=== PATIENT | male | born 1955 | race American Indian/Alaskan Native ===

== ENCOUNTER 2017-03-05 00:52 | Emergency (ER) | payer MEDICARE, OTHER ==
[2017-03-05] MEDS ORDERED: TYLENOL ONE (01:04)
[2017-03-05] MEDS ORDERED: TYLENOL PO ONE (01:05)
[2017-03-05] MEDS ORDERED: ZOFRAN ODT ONE ×2 (01:10→01:14)
[2017-03-05] MEDS ORDERED: PEPCID ONE (01:10)
[2017-03-05 01:29] VITALS: BP 145/91
[2017-03-05] MEDS ORDERED: PEPCID PO ONE (01:29)
[2017-03-05] MEDS ORDERED: ZOFRAN ODT PO ONE ×2 (01:30→01:31)
[2017-03-05] MEDS ORDERED: KEFLEX PO ONE (05:45)
[2017-03-05] MEDS ORDERED: MOTRIN PO ONE (05:45)
[2017-03-05] MEDS ORDERED: TRIPLE ANTIBIOTIC TP ONE (05:45)
--- NOTE | 2017-03-05 06:03 | Emergency Department Report ---
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 PT states he has been on the road for two days. PT states on Thursday morning, he woke up at 0300 and felt something sting/ bite him. PT states during the day the bite site started to throb and itch. 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 PT states he did not take anything for his symptoms. PT states that the bite site , R elbow had a blister and now it has an open area. PT states he is UTD on his TD vaccine. MD Complaint: extremity pain (due to bug bite) -: Gradual, days(s) Location: right, upper extremity History of Same: No Severity scale (0 -10): 3 Quality: dull, constant Consistency: constant Improves with: medication (given in triage ) Worsens with: nothing Associated Symptoms: rash (redness ). denies: chest pain, shortness of breath, fever - Related Data Previous Rx's Medication Instructions Recorded Last Taken Type Cephalexin [Keflex] 500 mg PO Q6HR #28 capsule 03/05/17 Unknown Rx Ibuprofen [Motrin] 600 mg PO Q8H PRN #15 tablet 03/05/17 Unknown Rx Mupirocin [Bactroban 2%] 1 applic TP TID 5 Days 03/05/17 Unknown Rx Ondansetron [Zofran Odt] 4 mg PO Q8HR PRN #10 tab.rapdis 03/05/17 Unknown Rx hydrOXYzine PAMOATE [Vistaril] 25 mg PO Q6HR PRN #12 capsule 03/05/17 Unknown Rx Allergies Allergy/AdvReac Type Severity Reaction Status Date / Time fire ant Allergy Anaphylaxis Verified 03/05/17 01:23 gabapentin Allergy Anaphylaxis Verified 03/05/17 01:23 Iodinated Contrast Media - Allergy Anaphylaxis Verified 03/05/17 01:23 IV Dye nortriptyline HCl Allergy Anaphylaxis Verified 03/05/17 01:23 [From Pamelor] simvastatin [From Zocor] Allergy Anaphylaxis Verified 03/05/17 01:23 ED Review of Systems ROS: Stated complaint: INSECT BITE/RT ARM Other details as noted in HPI Comment: All other systems reviewed and negative Constitutional: denies: chills, fever Respiratory: denies: cough, shortness of breath Cardiovascular: denies: chest pain Gastrointestinal: nausea. denies: vomiting, diarrhea, constipation Musculoskeletal: denies: back pain, joint swelling Skin: as per HPI, change in color ED Past Medical Hx - Past Medical History Previous Medical History?: Yes Hx Hypertension: Yes Hx Diabetes: Yes Additional medical history: GERD, Blood Clots in Lungs - Surgical History Past Surgical History?: Yes Hx Cholecystectomy: Yes Additional Surgical History: Hernia, - Social History Smoking Status: Never Smoker Substance Use Type: None - Medications Home Medications: Home Medications Medication Instructions Recorded Confirmed Last Taken Type Cephalexin [Keflex] 500 mg PO Q6HR #28 capsule 03/05/17 Unknown Rx Ibuprofen [Motrin] 600 mg PO Q8H PRN #15 tablet 03/05/17 Unknown Rx Mupirocin [Bactroban 2%] 1 applic TP TID 5 Days 03/05/17 Unknown Rx Ondansetron [Zofran Odt] 4 mg PO Q8HR PRN #10 tab.rapdis 03/05/17 Unknown Rx hydrOXYzine PAMOATE [Vistaril] 25 mg PO Q6HR PRN #12 capsule 03/05/17 Unknown Rx ED Physical Exam - General Limitations: No Limitations General appearance: alert, in no apparent distress - Head Head exam: Present: atraumatic, normocephalic, normal inspection - Eye Eye exam: Present: normal appearance. Absent: conjunctival injection - ENT ENT exam: Present: normal exam, normal external ear exam - Neck Neck exam: Present: normal inspection, full ROM - Respiratory Respiratory exam: Present: normal lung sounds bilaterally. Absent: respiratory distress, accessory muscle use - Cardiovascular Cardiovascular Exam: Present: regular rate, normal rhythm - Extremities Exam Extremities exam: Present: full ROM, tenderness - Expanded Upper Extremity Exam Right Elbow exam: Present: full ROM, tenderness, swelling, abrasion, erythema (warmth ), other (PT states the small abrasion was the bite site, pt with local redness , erythema and warmth). Absent: effusion Forearm Wrist exam: Present: normal inspection - Back Exam Back exam: Present: normal inspection, full ROM - Neurological Exam Neurological exam: Present: alert, oriented X3, normal gait - Psychiatric Psychiatric exam: Present: normal affect, normal mood - Skin Skin exam: Present: warm, dry, erythema, abrasion. Absent: urticaria, vesicles , ecchymosis ED Course Vital Signs 03/05/17 01:23 Temperature 98.1 F Pulse Rate 87 Respiratory 20 Rate Blood Pressure 145/91 [Right] O2 Sat by Pulse 100 Oximetry - Reevaluation(s) Reevaluation #1: 03/05/17 06:06 PT states he is feeling better after meds in triage, and pt would like dc home. PT aware of dx and plan of care. PT given strict return precautions. PT aware not to take Vistaril when driving. PT has no questions at this time. - Pulse Oximetry Interpretation Digit-Finger Initial Pulse Oximetry Readin Actions Taken: none ED Medical Decision Making - Differential Diagnosis local reaction, cellulitis Critical Care Time: No Critical care attestation.: If time is entered above; I have spent that time in minutes in the direct care of this critically ill patient, excluding procedure time. ED Disposition Clinical Impression: Nausea, Elbow abrasion, non-infected Insect bite of elbow with local reaction Qualifiers: Encounter type: initial encounter Laterality: right Qualified Code(s): S50.361A - Insect bite (nonvenomous) of right elbow, initial encounter Disposition: DC-01 TO HOME OR SELFCARE Is pt being admited?: No Does the pt Need Aspirin: No Condition: Stable Instructions: Cellulitis (ED), Insect Bite or Sting (ED) Additional Instructions: No driving or ETOH After taking Vistaril Prescriptions: Cephalexin [Keflex] 500 mg PO Q6HR #28 capsule hydrOXYzine PAMOATE [Vistaril] 25 mg PO Q6HR PRN #12 capsule PRN Reason: Itching Ibuprofen [Motrin] 600 mg PO Q8H PRN #15 tablet PRN Reason: Pain Mupirocin [Bactroban 2%] 1 applic TP TID 5 Days Ondansetron [Zofran Odt] 4 mg PO Q8HR PRN #10 tab.rapdis PRN Reason: Nausea Referrals: PRIMARY ELANA, [Primary Care Provider] - 3-5 Days BRENDAN ANTOINE MD [Staff Physician] - 3-5 Days Time of Disposition: 06:09
== END 2017-03-05 06:30 | disposition home or self-care (01) ==
LOC: ED 00:52
DX: S50.361A Insect bite (nonvenomous) of right elbow, initial encounter (principal); S50.311A Abrasion of right elbow, initial encounter; I10 Essential (primary) hypertension; E11.9 Type 2 diabetes mellitus without complications; R11.0 Nausea; Z88.8 Allergy status to other drugs, medicaments and biological substances; Z91.048 Other nonmedicinal substance allergy status
CPT/HCPCS: 96372; 99282; J2930; A6250; Q0162